=== PATIENT | male | born 1940 | race Caucasian/White ===

== ENCOUNTER 2019-10-09 07:51 | Day surgery (SDC) | payer MEDICARE ==
[~2019-10-09] VITALS: Ht 175.3 cm; Wt 85.4 kg
[2019-10-09] VITALS (9 sets, daily range): BP systolic 151–177; BP diastolic 71–90
[~2019-10-09 07:51] MED LIST: AMIO200T61 PO; APIX5TAB3 PO; CARV-50 PO; CYAN100087 PO; FINA5TAB11 PO; FLEC100T35 PO; FLO0.4C PO; LOSA50TA3 PO; OMEP20TA23 PO; SITA1TAB2 PO
[2019-10-09] MEDS ORDERED: LIDOcaine/PRILOcaine 5gm cream TP ONE (08:15)
[2019-10-09] MEDS ORDERED: diphenhydrAMINE 25mg capsule PO PRN (08:15)
[2019-10-09] MEDS ORDERED: normal saline 1,000 ML IV SCH (08:15)
[2019-10-09] MEDS ORDERED: LIDOcaine 1% (10mg/ml)w/preservative injection 20ml MDV ONE (08:52)
[2019-10-09] MEDS ORDERED: fentaNYL/PF 50MCG/1 ML 2ML syringe ONE (08:52)
[2019-10-09] MEDS ORDERED: iohexol 350MG/ML 100ml bottle IV ONE ×2 (08:52→10:04)
[2019-10-09] MEDS ORDERED: iohexol 350 MG/ML 50ML vial IV ONE (08:52)
[2019-10-09] MEDS ORDERED: midazolam 2 mg/2 ml injection ONE ×2 (08:52→09:32)
[2019-10-09] MEDS ORDERED: PANT40TA4 PO (08:56)
[2019-10-09] MEDS ORDERED: LOSA100T57 PO (08:56)
[2019-10-09] MEDS ORDERED: ATOR40TA71 PO (08:56)
[2019-10-09 08:58] LABS: BASOPHILS # (AUTO) 0.1 X10'3 (0-0.2); BASOPHILS % (AUTO) 0.8 % (0-1); EOSINOPHILS # (AUTO) 0.5 X10'3 (0-0.9); EOSINOPHILS % (AUTO) 7.7 % (0-6); HEMATOCRIT 39.9 % (42.0-52.0); HEMOGLOBIN 13.1 g/dl (14.0-17.9); LYMPHOCYTES # (AUTO) 1.1 X10'3 (1.1-4.8); LYMPHOCYTES % (AUTO) 17.5 % (21-51); MEAN CORPUSCULAR HEMOGLOBIN 26.3 PG (27.0-31.0); MEAN CORPUSCULAR VOLUME 79.8 FL (78-98); MEAN PLATELET VOLUME 7.2 FL (7.4-10.4); MONOCYTES # (AUTO) 0.6 X10'3 (0-0.9); MONOCYTES % (AUTO) 8.9 % (2-12); NEUTROPHILS # (AUTO) 4.1 X10'3 (1.8-7.7); NEUTROPHILS % (AUTO) 65.1 % (42-75); PLATELET COUNT 183 X10'3 (140-440); RED BLOOD COUNT 4.99 X10'6 (4.70-6.10); WHITE BLOOD COUNT 6.2 X10'3 (4.5-11.0)
[2019-10-09 09:03] LABS: ALBUMIN 3.6 G/DL (3.4-5.0); ANION GAP 7 (8-16); BLOOD UREA NITROGEN 26 MG/DL (7-18); BUN/CREATININE RATIO 26.5 (5.4-32.0); CALCIUM 8.5 MG/DL (8.5-10.1); CHLORIDE 107 MMOL/L (99-107); CREATININE 0.98 MG/DL (0.60-1.10); GLUCOSE 138 MG/DL (70-104); MAGNESIUM 1.9 MG/DL (1.5-2.4); POTASSIUM 3.9 MMOL/L (3.5-5.1); SODIUM 140 MMOL/L (135-145); TOTAL CARBON DIOXIDE 25.9 MMOL/L (24-32); eGFR 74 ML/MIN
[2019-10-09] MEDS ORDERED: nitroGLYCERIN-Tridil 50MG/D5W 250 ML IV ONE (09:30)
[2019-10-09] MEDS ORDERED: verapamil 2.5 mg/ml inj IV ONE (09:31)
[2019-10-09] MEDS ORDERED: heparin 1,000unit/ml 10ml vial 10 ML ONE (09:31)
== END 2019-10-09 14:00 | disposition home or self-care (01) ==
LOC: U 07:51 → MED 3N 07:52 → U 14:00
PROVIDERS: ATTEND Internal Medicine Cardiovascular Disease
DX: I25.10 Atherosclerotic heart disease of native coronary artery without angina pectoris (principal); I25.82 Chronic total occlusion of coronary artery; E78.00 Pure hypercholesterolemia, unspecified; I48.91 Unspecified atrial fibrillation; E11.9 Type 2 diabetes mellitus without complications; N40.0 Benign prostatic hyperplasia without lower urinary tract symptoms; Z95.5 Presence of coronary angioplasty implant and graft; Z87.891 Personal history of nicotine dependence; Z79.899 Other long term (current) drug therapy; Z82.49 Family history of ischemic heart disease and other diseases of the circulatory system
CPT/HCPCS: 36415; 80048; 83735; 85025; 85610; 93005; 93458; 93571; 99152; 99153; C1769; C1894; J1644; J2001; J2250; J3010; J7030; Q0163; Q9967; 36225; A4620; A5120; A6258; C1760; J3490

== ENCOUNTER 2020-04-05 09:25 | Day surgery (SDC) | payer MEDICARE ==
[2020-04-05] VITALS (8 sets, daily range): BP systolic 102–151; BP diastolic 45–82
[~2020-04-05] VITALS: Ht 175.3 cm; Wt 88.0 kg
[~2020-04-05 09:25] MED LIST changes: -AMIO200T61 PO; +ATOR40TA71 PO; -CYAN100087 PO; +LOSA100T57 PO; -LOSA50TA3 PO; -OMEP20TA23 PO; +PANT40TA54 PO; -SITA1TAB2 PO
[2020-04-05] MEDS ORDERED: diphenhydrAMINE 25mg capsule PO PRN (09:45)
[2020-04-05] MEDS ORDERED: normal saline 1,000 ML IV SCH (09:45)
[2020-04-05] MEDS ORDERED: midazolam 2 mg/2 ml injection ONE ×2 (10:18→11:03)
[2020-04-05] MEDS ORDERED: fentaNYL/PF 50MCG/1 ML 2ML syringe ONE (10:18)
[2020-04-05] MEDS ORDERED: proCHLORperazine 10 MG/2 ml inj ONE (10:18)
[2020-04-05] MEDS ORDERED: LIDOcaine 1% (10mg/ml)w/preservative injection 20ml MDV ONE (10:18)
[2020-04-05] MEDS ORDERED: heparin 1,000unit/ml 10ml vial 10 ML ONE (10:19)
[2020-04-05] MEDS ORDERED: iohexol 350 MG/ML 50ML vial IV ONE (10:19)
[2020-04-05] MEDS ORDERED: iohexol 350 MG/1 ML 200ml bottle ONE (10:19)
[2020-04-05 10:37] LABS: HEMOGLOBIN 12.8 g/dl (14.0-17.9); RED CELL DISTRIBUTION WIDTH 15.8 % (11.5-14.5)
[2020-04-05 10:38] LABS: BASOPHILS % (AUTO) 0.6 % (0-1); EOSINOPHILS # (AUTO) 0.2 X10'3 (0-0.9); EOSINOPHILS % (AUTO) 3.1 % (0-6); HEMATOCRIT 38.7 % (42.0-52.0); LYMPHOCYTES # (AUTO) 1.3 X10'3 (1.1-4.8); LYMPHOCYTES % (AUTO) 16.7 % (21-51); MEAN CORPUSCULAR HEMOGLOBIN 25.8 PG (27.0-31.0); MEAN CORPUSCULAR HGB CONC 33.2 g/dL (33.0-36.5); MEAN CORPUSCULAR VOLUME 77.8 FL (78-98); MEAN PLATELET VOLUME 7.1 FL (7.4-10.4); MONOCYTES # (AUTO) 0.6 X10'3 (0-0.9); MONOCYTES % (AUTO) 7.5 % (2-12); NEUTROPHILS # (AUTO) 5.6 X10'3 (1.8-7.7); NEUTROPHILS % (AUTO) 72.1 % (42-75); PLATELET COUNT 192 X10'3 (140-440); RED BLOOD COUNT 4.97 X10'6 (4.70-6.10); WHITE BLOOD COUNT 7.7 X10'3 (4.5-11.0)
[2020-04-05 10:55] LABS: ALBUMIN 4.1 G/DL (3.4-5.0); ANION GAP 7 (8-16); BLOOD UREA NITROGEN 26 MG/DL (7-18); BUN/CREATININE RATIO 25.5 (5.4-32.0); CALCIUM 8.8 MG/DL (8.5-10.1); CHLORIDE 106 MMOL/L (99-107); CREATININE 1.02 MG/DL (0.60-1.10); GLUCOSE 145 MG/DL (70-104); MAGNESIUM 2.1 MG/DL (1.5-2.4); POTASSIUM 3.9 MMOL/L (3.5-5.1); SODIUM 139 MMOL/L (135-145); TOTAL CARBON DIOXIDE 26.5 MMOL/L (24-32); eGFR 70 ML/MIN
[2020-04-05] MEDS ORDERED: clopidogrel 300mg tablet ONE (12:01)
[2020-04-05] MEDS ORDERED: HYDROcodone/acetaminophen 5mg/325mg tablet PO PRN (12:40)
[2020-04-05] MEDS ORDERED: OXAZEpam 15mg capsule PO PRN (12:40)
[2020-04-05] MEDS ORDERED: HYDROcodone/acetaminophen 10/325mg tab PO PRN (12:40)
== END 2020-04-05 15:05 | disposition home or self-care (01) ==
LOC: SSTAY O 09:25
PROVIDERS: ATTEND Internal Medicine Cardiovascular Disease
DX: I25.119 Atherosclerotic heart disease of native coronary artery with unspecified angina pectoris (principal); I25.82 Chronic total occlusion of coronary artery; I48.91 Unspecified atrial fibrillation; I10 Essential (primary) hypertension; E11.9 Type 2 diabetes mellitus without complications; N40.0 Benign prostatic hyperplasia without lower urinary tract symptoms; Z87.891 Personal history of nicotine dependence; Z95.5 Presence of coronary angioplasty implant and graft; Z79.01 Long term (current) use of anticoagulants; Z79.899 Other long term (current) drug therapy; Z82.49 Family history of ischemic heart disease and other diseases of the circulatory system
CPT/HCPCS: 36415; 80048; 83735; 85025; 85610; 92978; 93005; 93454; 99152; 99153; C1725; C1751; C1753; C1760; C1769; C1874; C1894; C9600; J0780; J1644; J2001; J2250; J3010; J7030; Q9967; 92920; A4620; A6258; C9607

== ENCOUNTER 2020-08-16 07:38 | Day surgery (SDC) | payer OTHER ==
[2020-08-16] VITALS (9 sets, daily range): BP systolic 134–155; BP diastolic 75–85
[~2020-08-16] VITALS: Ht 177.8 cm; Wt 92.3 kg
[2020-08-16] MEDS ORDERED: normal saline 1,000 ML IV SCH (08:00)
[2020-08-16] MEDS ORDERED: diphenhydrAMINE 25mg capsule PO PRN (08:00)
[2020-08-16] MEDS ORDERED: iohexol 350MG/ML 100ml bottle IV ONE ×2 (08:13→10:07)
[2020-08-16] MEDS ORDERED: iohexol 350 MG/ML 50ML vial IV ONE (08:13)
[2020-08-16] MEDS ORDERED: LIDOcaine 1% (10mg/ml)w/preservative injection 20ml MDV ONE (08:13)
[2020-08-16] MEDS ORDERED: fentaNYL/PF 50MCG/1 ML 2ML syringe ONE ×3 (08:14→10:15)
[2020-08-16] MEDS ORDERED: midazolam 2 mg/2 ml injection ONE ×3 (08:14→10:15)
[2020-08-16 08:59] LABS: BASOPHILS % (AUTO) 0.9 % (0-1); EOSINOPHILS # (AUTO) 0.3 X10'3 (0-0.9); EOSINOPHILS % (AUTO) 5.5 % (0-6); HEMATOCRIT 31.8 % (42.0-52.0); HEMOGLOBIN 10.5 g/dl (14.0-17.9); LYMPHOCYTES # (AUTO) 1.2 X10'3 (1.1-4.8); MEAN CORPUSCULAR HEMOGLOBIN 24.5 PG (27.0-31.0); MEAN CORPUSCULAR HGB CONC 33.1 g/dL (33.0-36.5); MEAN CORPUSCULAR VOLUME 74.2 FL (78-98); MEAN PLATELET VOLUME 6.7 FL (7.4-10.4); MONOCYTES # (AUTO) 0.4 X10'3 (0-0.9); MONOCYTES % (AUTO) 7.9 % (2-12); NEUTROPHILS # (AUTO) 3.4 X10'3 (1.8-7.7); NEUTROPHILS % (AUTO) 63.7 % (42-75); PLATELET COUNT 212 X10'3 (140-440); RED BLOOD COUNT 4.29 X10'6 (4.70-6.10); RED CELL DISTRIBUTION WIDTH 15.9 % (11.5-14.5); WHITE BLOOD COUNT 5.3 X10'3 (4.5-11.0)
[2020-08-16] MEDS ORDERED: CLOP75TA34 PO (09:04)
[2020-08-16 09:06] LABS: ALBUMIN 3.5 G/DL (3.4-5.0); BLOOD UREA NITROGEN 26 MG/DL (7-18); BUN/CREATININE RATIO 28.3 (5.4-32.0); CALCIUM 8.7 MG/DL (8.5-10.1); CHLORIDE 106 MMOL/L (99-107); CREATININE 0.92 MG/DL (0.60-1.10); GLUCOSE 148 MG/DL (70-104); MAGNESIUM 1.9 MG/DL (1.5-2.4); TOTAL CARBON DIOXIDE 28.1 MMOL/L (24-32); eGFR 79 ML/MIN
[2020-08-16] MEDS ORDERED: ISOS30TA9 PO (09:06)
[2020-08-16 09:07] LABS: ANION GAP 8 (8-16); POTASSIUM 4.1 MMOL/L (3.5-5.1); SODIUM 142 MMOL/L (135-145)
[2020-08-16] MEDS ORDERED: heparin 1,000unit/ml 10ml vial 10 ML ONE (10:03)
[2020-08-16] MEDS ORDERED: adenosine 90 MG/30ml kit =/or below 120kg Cath Lab IV ONE (10:26)
[2020-08-16] MEDS ORDERED: nitroGLYCERIN-Tridil 50MG/D5W 250 ML IV ONE (10:56)
== END 2020-08-16 14:30 | disposition home or self-care (01) ==
LOC: SSTAY O 07:38
PROVIDERS: ATTEND Internal Medicine Cardiovascular Disease
DX: I25.118 Atherosclerotic heart disease of native coronary artery with other forms of angina pectoris (principal); I25.82 Chronic total occlusion of coronary artery; Z95.5 Presence of coronary angioplasty implant and graft; R07.9 Chest pain, unspecified; E11.9 Type 2 diabetes mellitus without complications; I10 Essential (primary) hypertension; I44.0 Atrioventricular block, first degree
CPT/HCPCS: 36415; 80048; 82948; 83735; 85025; 85610; 92920; 93005; 93458; 93571; 99152; 99153; C1725; C1751; C1760; C1769; C1874; C1894; C9600; J0153; J1644; J2001; J2250; J3010; J7030; Q0163; Q9967; A4620; J3490

== ENCOUNTER 2021-02-18 14:34 | Emergency (ER) | payer OTHER ==
[~2021-02-18] VITALS: Ht 177.8 cm; Wt 84.1 kg
[~2021-02-18 14:34] MED LIST changes: +CLOP75TA34 PO; +ISOS30TA9 PO
[2021-02-18 14:43] VITALS: BP 166/72
[2021-02-18] MEDS ORDERED: DOXY-1 PO (18:19)
== END 2021-02-18 20:05 | disposition left against medical advice (07) ==
LOC: ER 14:35
DX: B99.8 Other infectious disease (principal); Z98.890 Other specified postprocedural states; Z79.2 Long term (current) use of antibiotics; Z79.899 Other long term (current) drug therapy
CPT/HCPCS: 99283